=== PATIENT | male | born 2000 ===

== ENCOUNTER 2022-01-04 15:29 | Emergency (ER) | payer OTHER ==
[~2022-01-04] VITALS: Ht 182.9 cm; Wt 106.6 kg
[~2022-01-04 15:29] MED LIST: AMOX50SU PO; AZIT200SU PO; CODACEE120 PO; ONDA4ODT MM
== END 2022-01-04 17:16 | disposition home or self-care (01) ==
LOC: ER 15:29
DX: S61.201A Unspecified open wound of left index finger without damage to nail, initial encounter (principal); Z23 Encounter for immunization; W26.0XXA Contact with knife, initial encounter
CPT/HCPCS: 12001; 90471; 90714; 99282-25

== ENCOUNTER 2023-08-24 23:21 | Emergency (ER) | payer OTHER ==
[~2023-08-24] VITALS: Ht 182.9 cm; Wt 108.9 kg
[2023-08-25] MEDS ORDERED: ACET500 PO (01:05)
[2023-08-25] MEDS ORDERED: LIDO700A20 TOP (01:05)
[2023-08-25] MEDS ORDERED: Ibuprofen600 MG PO (01:05)
[2023-08-25 01:18] VITALS: BP 124/65
== END 2023-08-25 01:18 | disposition home or self-care (01) ==
LOC: ER 23:21
DX: S13.4XXA Sprain of ligaments of cervical spine, initial encounter (principal); X50.3XXA Overexertion from repetitive movements, initial encounter; Y92.39 Other specified sports and athletic area as the place of occurrence of the external cause; Y93.B2 Activity, push-ups, pull-ups, sit-ups
CPT/HCPCS: 72040; 93005; 93010; 99284-25; A9270